=== PATIENT | female | born 1955 | race Caucasian/White ===

== ENCOUNTER → 2017-10-01 | Outpatient (CLI) | payer OTHER ==
--- NOTE | 2017-10-01 08:58 | KCIC ---
MRI Lumbar Spine without contrast History: Lumbar radiculopathy, low back pain with right radiculopathy with worsening symptoms Technique: Multiplanar, multi sequential noncontrast MR imaging was performed of the lumbar spine. Contrast: None Comparison: None Findings: Lumbar vertebral body stature and AP alignment are maintained. Conus terminates at T12. There is iowu-kt-[id number] lumbar levoscoliosis with rotary component, centered about L2-3. There is L4-5 endplate edema more eccentric to the right. There is also some increased T2 and STIR signal abnormality in the L4-5 intervertebral disc space more eccentric to the right. There is moderate narrowing of the L4-5 intervertebral disc space, mild disc desiccation at more superior levels. There are posterior annular tears T12-L1, L3-4, and L4-5. L1-L2: There is a shallow posterior central protrusion and possibly tiny extrusion extending very slightly below the intervertebral disc space centrally. Spinal canal and the neural foramina are adequate. L2-L3: There is minimal facet degenerative change. There is minimal bulge. Neural foramina are adequate. There is very mild narrowing of the far lateral recesses greater on the left. L3-L4: There is minimal disc osteophyte complex and bulge. There is minimal buckling of the ligamentum flavum and facet hypertrophic change. There is [id number]-js-[id number] narrowing of the far lateral recesses bilaterally, mild narrowing of the central canal. There is minimal narrowing of the left neural foramen, right neural foramen overall adequate. L4-L5: There is zvoo-mx-yiafozrl facet degenerative change and buckling of the ligamentum flavum. There is broad posterior bulge/protrusion. Combination of findings results in severe left greater than right lateral recess stenosis, moderate to severe narrowing of the central canal. There is contact descending L5 nerve roots in the lateral recesses bilaterally. There is some preserved central subarachnoid space. There is qzjy-lc-jplkiuki neural foramina compromise bilaterally. There is also apparently an extrusion anteriorly on the right extending slightly below the intervertebral disc space with internal T2 and STIR hyperintense signal, on the order of 0.8 cm AP by 1.5 cm cc by approximately 1.5 cm transverse. L5-S1: There is olbr-hy-yuhsxcej facet degenerative change and minimal buckling of the ligamentum flavum. Neural foramina are adequate. There is moderate to severe narrowing of the left lateral recess at location of the descending left S1 nerve root, narrowing from posteriorly by facet and ligamentum flavum. Impression: 1. There is severe left greater than right lateral recess stenosis at L4-5 with contact descending L5 nerve roots, also left lateral recess stenosis at L5-S1 with contact descending left S1 nerve root. There is a lesser degree of mild to moderate narrowing of the far lateral recesses bilaterally at L3-4. 2. There is signal abnormality in the L4-5 intervertebral disc space more eccentric to the right, also adjacent endplate edema. Findings are more likely to be reactive related to more recent disc herniation is there is extrusion anteriorly on the right. Infectious spondylitis is not excluded although considered less likely given the presence of vacuum phenomena of the more central aspect of the intervertebral disc space. Correlation with clinical findings is advised. 3. There is ibzy-fk-lippmmtw neural foramina compromise bilaterally at L4-5. There is lumbar levoscoliosis. Electronically signed by: Hayder Altamirano MD (10/01/2017 8:55 AM) [id number]
== END | disposition home or self-care (01) ==
LOC: KCIC MRI 07:39
PROVIDERS: ATTEND Anesthesiology Pain Medicine
DX: M54.16 Radiculopathy, lumbar region (principal); M48.061 Spinal stenosis, lumbar region without neurogenic claudication
CPT/HCPCS: 72148